=== PATIENT | male | born 1930 | race Two or more races ===

== ENCOUNTER 2017-04-01 11:49 | Day surgery (SDC) | payer OTHER ==
[2017-03-31 11:48] VITALS: BMI 26.6
--- NOTE | 2017-04-01 12:03 | OP ---
Operative Note - Note: Operative Date: 04/01/17 Pre-Operative Diagnosis: gross hematuria with bladder mass Operation: cysto/turbt Post-Operative Diagnosis: Same as Pre-op Surgeon: Paige Vicente Anesthesia: General Drains & Tubes with Location: [facility] Operative Report Dictated: Yes
[2017-04-01] MEDS ORDERED: ceFAZolin SODIUM 1 GM VIAL ONE (18:59)
[2017-04-01] MEDS ORDERED: ceFAZolin SODIUM 1 GM VIAL IVPB ONE (19:00)
[2017-04-01] MEDS ORDERED: PROPOFOL 20 ML ONE (19:14)
[2017-04-01] MEDS ORDERED: ONDANSETRON 4 MG/2 ML VIAL IVPUSH PRN (19:44)
[2017-04-01] MEDS: CEPHALEXIN MONOHYDRATE 500 MG CAPSULE (UD) PO SCH ×2 (21:12→23:02)
[2017-04-01] MEDS: VALSARTAN 160 MG TABLET (UD) PO SCH (21:12)
[2017-04-01] MEDS: oxyCODONE HCL 5 MG TABLET PO PRN (21:58)
[2017-04-01] MEDS: ACETAMINOPHEN 325 MG TABLET (FP) PO PRN (21:58)
[2017-04-02] MEDS: ACETAMINOPHEN 325 MG TABLET (FP) PO PRN (02:15)
[2017-04-02] MEDS: oxyCODONE HCL 5 MG TABLET PO PRN (02:15)
[2017-04-02] MEDS: CEPHALEXIN MONOHYDRATE 500 MG CAPSULE (UD) PO SCH (06:00)
[2017-04-02 06:33] VITALS: PULSE 90
[2017-04-02] MEDS ORDERED: sitaGLIPtin PHOSPHATE 25 MG TABLET (FP) PO SCH (07:00)
[2017-04-02] MEDS: VALSARTAN 160 MG TABLET (UD) PO SCH (09:25)
--- NOTE | 2017-04-02 09:25 | OP ---
DATE OF OPERATION: 04/01/2017 PREOPERATIVE DIAGNOSIS: Bladder tumor. POSTOPERATIVE DIAGNOSIS: Bladder tumor, malignant tumor, large right lateral wall. DESCRIPTION OF PROCEDURE: Under general anesthesia, the patient is prepped and draped in the usual sterile manner. He is placed in the dorsal lithotomy position. Resectoscope was inserted. Inspection revealed bilobar hypertrophy of the prostate. There was lateral lobe kissing. The bladder revealed a grade 2-3 trabeculation. A large 5-cm capillary tumor involving the entire right wall was seen. Right orifice was clear. Efflux of urine was clear from the right and left orifice. The tumor was resected in the usual fashion. Tumor chips were evacuated with an Ellik evacuator. No active bleeding was noted. A 20-Maori Borges was placed and connected to a leg bag. The patient returned to the recovery room in good condition. Denae [id number]
--- NOTE | 2017-04-02 10:02 | HP ---
DATE OF ADMISSION: DATE OF DICTATION: 04/01/2017 The patient is an 87-year-old male. Presents for ambulatory surgery for resection of bladder tumor. Patient underwent cystoscopy with biopsy on February 25, 2017. Afterwards, he developed post-biopsy clot retention. Went to the emergency room. Had a Borges catheter placed. The Borges was removed and the patient is voiding well. 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 The patient does have high blood pressure and dyslipidemia. He has undergone a cholecystectomy, an upper GI endoscopy, as well as . MEDICATIONS: He is on Tradjenta, atorvastatin, and an GAVIOTA inhibitor. PHYSICAL EXAMINATION: General: Revealed a well developed, adult male in no apparent distress. Abdomen: Soft. No CVA tenderness. Genitalia: Atraumatic. His prostate is 2+, smooth, benign, nontender. His PSA is 0.3. BUN and creatinine are 20/1.36. Postvoid residual was 19. IMPRESSION: History of bladder tumor. Mild symptoms of benign prostatic hypertrophy. Plan is for cystoscopy and TUR bladder tumor. Denae [id number]
[2017-04-02 10:07] VITALS: BP 130/68; TEMP 98.9
--- NOTE | 2017-04-05 15:41 | PATH ---
Surgical Pathology Report Patient Name: PERLITA WALKER [facility]. Rec. #: [id number] /Age/Gender: 1930 (Age: 87) / M Account: [id number] Location: [facility] [place] [facility] Taken: 04/01/2017 Received: 04/04/2017 Reported: 04/05/2017 Physicians: Paige Vicente M.D. Specimen(s) Received RIGHT LATERAL WALL MALIGNANT BLADDER TUMOR Clinical History Bladder tumor Final Diagnosis BLADDER, RIGHT LATERAL WALL TUMOR, TUR: NON-INVASIVE LOW GRADE PAPILLARY UROTHELIAL CARCINOMA. LAMINA PROPRIA INVASION: NOT IDENTIFIED. MUSCULARIS PROPRIA (DETRUSOR): PRESENT, FREE OF CARCINOMA. CARCINOMA IN SITU (CIS): NOT IDENTIFIED. Electronically Signed Jorge Lynn M.D. Gross Description Received in formalin labeled "right lateral wall malignant bladder tumor" is a 6.2 x 6.0 x 0.4 cm aggregate of post soft tissue fragments. The formalin is filtered and the specimen is entirely submitted in 9 cassettes. /04/04/2017 saudi04/04/2017
--- NOTE | 2017-04-05 16:52 | PATH ---
Cytology Non-Gynecological Report Patient Name: PERLITA WALKER [facility]. Rec. #: [id number] /Age/Gender: 1930 (Age: 87) / M Account: [id number] Location: [facility] Taken: 04/01/2017 Received: 04/04/2017 Reported: 04/05/2017 Physicians: Paige Vicente M.D. Specimen(s) Received URINE, CYSTOCOPIC Clinical History Bladder tumor Final Diagnosis CYSTOSCOPIC URINE FOR CYTOLOGY: SATISFACTORY FOR EVALUATION. SCATTERED CLUSTERS OF UROTHELIAL CELLS PRESENT (SEE COMMENT). NUMEROUS RED BLOOD CELLS. Comment: Clusters of urothelial cells may be seen as a result of inflammation consultation from stones and low-grade urothelial carcinoma. Low grade urothelial carcinoma is seen in the concurrent surgical specimen ([id number]). Electronically Signed Jorge Lynn M.D. Gross Description Received is 50 cc of clear yellow fluid fresh. Two cytofunnel slides and one cell block are made.
== END 2017-04-02 10:07 | disposition home or self-care (01) ==
LOC: JASU-SURG 11:49 → J6S 21:11 → JASU-SURG 04-02 10:07
PROVIDERS: ATTEND Urology
PROC: 0TBB8ZX Excision of Bladder, Via Natural or Artificial Opening Endoscopic, Diagnostic (ICD-10-PCS; principal; 2017-04-01 13:30)
DX: C67.2 Malignant neoplasm of lateral wall of bladder (principal)
CPT/HCPCS: 87086; 88108; 88305-TC; 88307-TC; 94760